=== PATIENT | female | born 1970 | race Two or more races ===

== ENCOUNTER 2023-10-30 00:13 | Emergency (ER) | payer MEDICAID ==
[~2023-10-30] VITALS: Ht 167.6 cm; Wt 64.0 kg
[2023-10-30 00:29] VITALS: O2SAT 96
[2023-10-30 01:16] LABS: BASOPHILS % 1.1 % (0.0-2.0); EOSINOPHILS % 1.6 % (0.0-5.0); HEMATOCRIT. 32.4 % (36.0-48.0); LYMPHOCYTES % 18.7 % (20.0-50.0); MEAN CORPUSCULAR HEMOGLOBIN 30.4 pg (28.0-32.0); MEAN CORPUSCULAR VOLUME 98.3 fL (81.0-99.0); MEAN PLATELET VOLUME 7.4 fl (7.4-10.4); MONOCYTES % 11.8 % (2.0-8.0); NEUTROPHILS % 66.8 % (40.0-76.0); PLATELET 202 x1000/uL (130-400); RED CELL DISTRIBUTION WIDTH 20.5 % (11.6-14.6); WHITE BLOOD COUNT 5.9 x1000/uL (4.5-11.0)
[2023-10-30 01:24] LABS: CHLORIDE 102 mEq/L (98-107); POTASSIUM 3.8 mEq/L (3.5-5.1); SODIUM 143 mEq/L (136-145)
[2023-10-30 01:25] LABS: CARBON DIOXIDE 31 mEq/L (21-32)
[2023-10-30 01:26] LABS: CALCIUM 9.9 mg/dL (8.7-10.4)
[2023-10-30 01:30] LABS: GLUCOSE 94 mg/dL (70-105); UREA NITROGEN BLOOD 29 mg/dL (9-23)
[2023-10-30 01:31] LABS: ETHANOL BLOOD 191 mg/dL (<10)
[2023-10-30 01:45] LABS: CREATININE 6.7 mg/dL (0.6-1.0); TROPONIN I HIGH SENSITIVITY 114 ng/L (3.0-34)
[2023-10-30 02:43] LABS: INR 1.2; PARTIAL THROMBOPLASTIN TIME 27.7 sec (23.4-31.0); PROTHROMBIN TIME 12.7 sec (9.6-11.0)
[2023-10-30] MEDS: ACETAMINOPHEN 325MG TABLET PO ONE (03:34)
[2023-10-30 07:30] VITALS: BP 124/69; PULSE 93; RESP 26; TEMP 37.00296; O2SAT 97
== END 2023-10-30 08:58 | disposition left against medical advice (07) ==
LOC: ER 00:13 → EDBEDREQTM 03:11 → EDBEDREQ 03:11 → ER 08:58
DX: I12.0 Hypertensive chronic kidney disease with stage 5 chronic kidney disease or end stage renal disease (principal); N18.6 End stage renal disease; E87.70 Fluid overload, unspecified; I10 Essential (primary) hypertension; J45.909 Unspecified asthma, uncomplicated; R51.9 Headache, unspecified; Z98.890 Other specified postprocedural states; Z88.1 Allergy status to other antibiotic agents; Z88.8 Allergy status to other drugs, medicaments and biological substances; Z00.00 Encounter for general adult medical examination without abnormal findings; W18.30XA Fall on same level, unspecified, initial encounter; Y93.89 Activity, other specified; Y92.89 Other specified places as the place of occurrence of the external cause; Y99.8 Other external cause status
CPT/HCPCS: 36415; 71045; 73030; 80048; 80320; 83880; 84484; 85025; 93005; 99285; G0480